=== PATIENT | male | born 1995 ===

== ENCOUNTER 2016-10-16 10:07 | Day surgery (SDC) | payer BC ==
[2016-10-16 10:40] VITALS: BMI 21.9
[2016-10-16] MEDS ORDERED: Bacitracin Ointment 30 GM TUBE ONE (11:08)
[2016-10-16] MEDS ORDERED: Lidocaine 2% Inj (20ml) ONE (11:08)
[2016-10-16] MEDS ORDERED: Lactated Ringer's 500 ML IV ONE (11:30)
[2016-10-16] MEDS ORDERED: Ciprofloxacin 400mg/200ml D5W 200 ML IVPB ONE (11:43)
[2016-10-16] MEDS ORDERED: Bupivacaine HCl 0.25% PF (10 ml) Inj ONE (11:45)
[2016-10-16] MEDS ORDERED: Midazolam 2 MG/2 ML VIAL ONE (11:47)
[2016-10-16] MEDS ORDERED: Propofol 10 mg/ml Inj (20 ML) ONE ×2 (11:47→12:40)
[2016-10-16] MEDS ORDERED: Lidocaine Hydrochloride 5 ML INJ ONE (11:49)
[2016-10-16] MEDS ORDERED: Lactated Ringer's 1,000 ML IV ONE (12:15)
[2016-10-16] MEDS ORDERED: HYDROmorphone 0.5 mg/0.5 ml ISec IVP PRN (12:51)
[2016-10-16] MEDS ORDERED: Oxycodone/Acetaminophen 5/325 mg Tab PO PRN (12:54)
--- NOTE | 2016-10-16 13:00 | PCM.SURG1 ---
Surgeon's Initial Post Op Note - Surgeon's Notes Surgeon: reyna Vacuum Cleaner Repair Person: none Type of Anesthesia: IV Sedation, Local Anesthesia Administered By: Pre-Operative Diagnosis: marked phimosis. Operative Findings: marked phimosis. Post-Operative Diagnosis: marked phimosis. Operation Performed: circumcision. Specimen/Specimens Removed: penile skin Estimated Blood Loss: EBL {In ML}: 10 Blood Products Given: N/A Drains Used: No Drains Post-Op Condition: Good Date of Surgery/Procedure: 10/16/16 Time of Surgery/Procedure: 13:03
[2016-10-16 14:28] VITALS: RESP 15; O2SAT 99
[2016-10-16 15:45] VITALS: BP 116/72; PULSE 69; TEMP 97.3
--- NOTE | 2016-10-16 18:40 | OP ---
PROCEDURE DATE: 10/16/2016 PREOPERATIVE DIAGNOSIS: Marked phimosis. POSTOPERATIVE DIAGNOSIS: Marked phimosis. OPERATION: Circumcision. SURGEON: Dr. Pimentel GROSS FINDINGS: Marked phimosis with redundant foreskin. TECHNIQUE: This patient was placed in supine position. The external genitalia were prepped and drap ed in the usual sterile fashion. A dorsal and a ventral slit incision were performed with 2 flaps of mucosa and skin were developed. The flaps were removed. Some bleeders were encountered and fulgura lavell because of persistent penile erection. Then, the skin and the mucosa were reapproximated with in terrupted stitches of 3-0 chromic. No bleeding was present at the end of the procedure. Dressing wa s applied. The patient returned to recovery room in satisfactory condition. Rad Pimentel MD cc: [id number] TT: 10/16/2016 18:39:41 en
== END 2016-10-16 17:05 | disposition home or self-care (01) ==
LOC: C.SDS 10:07
PROVIDERS: ATTEND Urology
DX: N47.1 Phimosis (principal); N47.8 Other disorders of prepuce; F17.200 Nicotine dependence, unspecified, uncomplicated
CPT/HCPCS: 54161; 88304; J0744; J2250; J2704; J3010; J7120